=== PATIENT | female | born 1945 | race Caucasian/White ===

== ENCOUNTER 2016-12-10 22:58 | Inpatient (IN) | payer MEDICARE, OTHER ==
[~2016-12-10] VITALS: Ht 162.6 cm; Wt 79.0 kg
[~2016-12-10 22:58] MED LIST: ASPI-973 PO; CALC-682 PO; CHOL500011 PO; DIPH1TAB PO; GABA800T2 PO; LEVO75TA4 PO; METH750T3 PO; METH850P PO; MULT-1065 PO; NITR0.4T SL; OMEP20CA11 PO; OXYC10TA8 PO; PROM25SU46 RC; SOLI10TA PO
[2016-12-10 23:12] VITALS: BP 167/71; PULSE 75; RESP 18; O2SAT 98
--- NOTE | 2016-12-10 23:15 | ED.REPORT ---
HPI-General Illness Date of Service Dec 10, 2016 ED Provider: Sidney Swift DO This patient is a demented 71 year old female with a history of hypertension, alleged coronary artery disease, hypothyroidism, and short gut syndrome who is brought to the ED by EMS from [facility] with flu-like symptoms that started 2 days ago. Ashley Griffith is currently in the midst of an influenza outbreak and she states that she made the mistake of interacting with other people at the facility several days ago. She admits to vomiting, nausea, cough, and fever. She denies chest pain or shortness of breath. Had flu shot this year. Nursing Notes Stated Complaint: FLU SYMPTOMS Chief Complaint: General Complaint Nursing Notes Reviewed: Yes Allergies: Coded Allergies: baclofen (Verified Adverse Reaction, Severe, confusion, altered LOC, ) NSAIDS (Non-Steroidal Anti-Inflamma (Unverified Adverse Reaction, Intermediate, ulcers, 01/23/16) chlorpromazine HCl (Verified Adverse Reaction, Intermediate, itchy nose, anxiety, rls, 01/23/16) metoclopramide HCl (Verified Adverse Reaction, Intermediate, Agitation, 01/23/16) midazolam (Unverified Adverse Reaction, Intermediate, 01/23/16) Extended memory loss morphine (Verified Adverse Reaction, Intermediate, RLS, 01/23/16) prochlorperazine maleate (Verified Adverse Reaction, Intermediate, Anxiety , 01/23/16) Iodinated Contrast Media - Oral and (Verified Adverse Reaction, Mild, ) PT. states she had a rxn to iodine contrast at 17 years of age. Has not reacted to contrast CT in recent years. No rxn to topical iodine codeine (Verified Adverse Reaction, Mild, "doesn't work", 01/23/16) fentanyl (Verified Adverse Reaction, Mild, "I don't like how it makes me feel", 01/23/16) meperidine (Verified Adverse Reaction, Mild, RLS, 01/23/16) Scheduled Aspirin (Aspirin) 81 Mg Tablet 81 MG PO DAILY Calcium Crb&Cit/D3/Min34/Yaya (Citracal + Bone Density Tablet) 1 Each Tablet 1 TAB PO BID Cholecalciferol (Vitamin D3) (Vitamin D3) 5,000 Unit Tablet 5,000 UNIT PO DAILY Diphenoxylate/Atropine 2.5-0.025 mg (Lomotil 2.5-0.025 mg) 1 Each Tablet 8 TAB PO QAM Gabapentin (Gabapentin) 800 Mg Tablet 800 MG PO TID Levothyroxine (Levothyroxine) 75 Mcg Tablet 75 MCG PO DAILY Methocarbamol (Methocarbamol) 750 Mg Tablet 750 MG PO TID Methylcellulose (with Sugar) (Citrucel Powder) 850 Gm Powder 850 GM PO DIRECTED Multivits-Min/Iron/FA/Lutein (Centrum Silver Women Tablet) 8 Mg Iron-400 Mcg- 300 Mcg Tablet 1 TAB PO DAILY Omeprazole (Omeprazole) 20 Mg Capsule.dr 20 MG PO DAILY Solifenacin Succinate (Vesicare) 10 Mg Tablet 10 MG PO BID Scheduled PRN Nitroglycerin SL (Nitrostat) 0.4 Mg Tab.subl 0.4 MG SL Q5MIN PRN PRN For Chest Pain Promethazine HCl (Phenergan) 25 Mg Supp.rect 25 MG RC TID PRN PRN For Nausea/ Vomiting oxyCODONE (oxyCODONE) 10 Mg Tablet 10 MG PO Q6H PRN PRN For Pain General Time Seen by MD: 23:15 Chief Complaint Flu-like illness Hx Obtained From: Patient, EMS Arrived By: Ambulance Sudden in Onset?: No Onset Occurred: More than a week ago... (2 weeks) Symptom Duration: Since onset Severity: Current: No pain currently Severity: Maximum: No pain Recent Healthcare: No recent doctor visit, No recent hospitalization Similar Sx Previous: Yes Past Medical History Past Medical History 1. Hypothyroidism 2. Hypertension 3. Restless leg syndrome 4. Esophageal spasms 5. Chronic pain with opiate habituation 6. Osteoporosis with L4 compression fracture 7. Osteoarthritis(sees Dr. Hart) 8. Alleged CAD (no interventions, no hospitalization- per patient's report) 9. Alleged CVA ( found on MRI after she presented with symptoms of "acting goofy" when she was in her mid 50s)- no residual symptoms 10. Overactive bladder 11. Vitamin B12 deficiency 12. History of ischemic colitis resulting in subcolectomy of her sigmoid colon in her mid 40s 13. Chronic diarrhea due to colectomy 14. Hospitalized for small bowel obstruction in 2011 and March 2013 Bifurcate uterus Congential colon problems Congenital three kidneys Short gun syndrome Dementia SVT paroxsymal Reports: Hypertension, Mental illness Reports: Depression Past Surgical History Vagotomy and pyloroplasty for peptic ulcer disease in the very distant past. Subtotal colectomy. Hysterectomy.bilateral salpingo-oophorectomy. Appendectomy. Laparotomy with enterolysis on several occasions. 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 Physical Exam Vital Signs Vital Signs Date Time Temp Pulse Resp B/P Pulse Ox O2 Delivery O2 Flow Rate FiO2 12/11/16 02:52 36.9 73 18 156/69 97 Room Air 12/11/16 02:00 39 75 28 157/88 94 Room Air 12/11/16 00:00 75 26 147/73 95 Room Air 12/10/16 23:12 36.9 75 18 167/71 98 Room Air Initial VS: Reviewed Head / Eyes: Atraumatic, Normocephalic, PERRL ENT: Mucous membranes moist, Conjunctiva normal, No scleral icterus Neck: Supple, Non-tender, Full range of motion Cardiovascular: Regular rate & rhythm, Heart sounds normal, Intact distal pulses Abdomen / GI: Soft, Non-tender, No guarding, No rebound, No distention Extremities: Vascular intact, Neuro intact, No swelling, No tenderness Skin: Warm, Dry, No cyanosis Neurologic: Alert, Oriented, Nonfocal Psychiatric: Mood/affect normal, Behavior normal, Normal thought content General/Constitutional: Awake, Alert, No acute distress Respiratory / Chest: No respiratory distress, No rales, No rhonchi, No wheezing Occasional cough, otherwise normal Interpretation & Diagnostics Interpretation & Diagnostics: POSITIVE FOR FLU A NEGATIVE FOR FLU B Lab Results Interpretation Result Diagram: 12/10/16 2342 12/10/16 2342 Test 12/10/16 00:40 12/10/16 23:42 12/11/16 03:41 Urine Color Straw (YELLOW) Urine Appearance Clear (CLEAR,HAZY) Urine pH 6.0 (5.0-8.0) Urine Specific [place] 1.010 (1.003-1.035) Urine Protein Negativemg/dL (NEG,TRACE) Urine Glucose (UA) Negativemg/dL (NEGATIVE) Urine Ketones Negativemg/dL (NEGATIVE) Urine Occult Blood Negative (NEGATIVE) Urine Nitrite Negative (NEGATIVE) Urine Bilirubin Negative (NEGATIVE) Urine Urobilinogen Normalmg/dL (NORMAL) Urine Leukocyte Esterase Negative (NEGATIVE) Urine RBC 0-2/hpf (0-2) Urine WBC 0-5/hpf (0-5) Urine Epithelial Cells Few/hpf (NONE-MOD) Urine Crystals None seen (NONE SEEN) Urine Bacteria None/hpf (NONE-FEW) Urine Hyaline Casts None/lpf (NONE) Urine Granular Casts None seen (NONE SEEN) Urine Waxy Casts None seen (NONE SEEN) Urine Red Blood Cell Casts None seen (NONE SEEN) Urine White Blood Cell Casts None seen (NONE SEEN) Urine Mucus None seen (None Seen) Urine Trichomonas None seen (NONE SEEN) Urine Yeast None (NONE SEEN) Urine Culture Reflexed Not indicated White Blood Count 7.0th/mm3 (3.8-10.1) Red Blood Count 4.62mil/mm3 (3.90-5.20) Hemoglobin 12.9g/dL (12.0-15.6) Hematocrit 39.3% (35.0-46.0) Mean Corpuscular Volume 85.1fL (81-100) Mean Corpuscular Hemoglobin 27.9pg (27.0-35.0) Mean Corpuscular Hemoglobin Concent 32.8% (32.0-37.0) Red Cell Distribution Width 13.4% (12.3-15.4) Platelet Count 218bil/L (150-400) Neutrophils (%) (Auto) 82.0% (40-74) Lymphocytes (%) (Auto) 4.6% (14-46) Monocytes (%) (Auto) 11.8% (4-12) Eosinophils (%) (Auto) 1.0% (0-5) Basophils (%) (Auto) 0.3% (0-3) Prothrombin Time 10.7sec (8.1-12.5) Prothromb Time International Ratio 1.00ratio Sodium Level 137mEq/L (134-144) Potassium Level 4.3mEq/L (3.5-5.2) Chloride Level 98mEq/L (97-108) Carbon Dioxide Level 26mmol/L (18-29) Blood Urea Nitrogen 7mg/dL (8-27) Creatinine 0.98mg/dL (0.57-1.00) Estimat Glomerular Filtration Rate 80mL/min (>59) Glucose Level 132mg/dL (60-99) Lactic Acid Level 1.8mmol/L (0.4-2.0) Calcium Level 9.3mg/dL (8.5-10.1) Magnesium Level 1.8mg/dL (1.6-2.6) Total Bilirubin 0.2mg/dL (0.0-1.2) Aspartate Amino Transf (AST/SGOT) 19U/L (0-50) Alanine Aminotransferase (ALT/SGPT) 13U/L (0-32) Alkaline Phosphatase 111U/L (25-165) Total Protein 7.7g/dL (6.4-8.4) Albumin 4.1g/dL (3.4-5.0) Lipase 23U/L (13-60) Troponin T 0.315ug/L (0.0-0.011) ECG Interpretation ECG Interpretation: SR with rate of 75 Time: 12:07 Interpreted by: ED physician X-Ray Chest Interpretation Chest Xray Interpretation: Elevated right hemidiaphragm, otherwise normal No signs of pneumonia Interpretation / Wet Read by: Wet read ED physician Re-Eval/Medical Decision Med Decision/Clinical Course 71-year-old female presents with fever chills nausea and vomiting. She is found to have influenza a period I was concerned enough for possible anginal equivalent causing her nausea that serial troponins were drawn. Repeat troponin came back elevated. Serial EKGs do not show any signs of myocardial ischemia. Perhaps she is having a troponin spillage related to the stress of the influenza. Either way she is now pain-free. Her EKG does not show dynamic changes. She will be treated with aspirin. Care was endorsed to Dr. Tyler. He will consult with cardiology and the hospitalist make final disposition. Source of Hx: Old records, EMS Time of Eval: 01:46 Re-Evaluation/Progress Note: Pt. rechecked. Told her she's positive for influenza A. All questions have been addressed at this time. Time of Eval: 03:16 Re-Evaluation/Progress Note: Rechecked the patient. She now requests to go home and states that she is feeling better. Patient will have a repeat Troponin prior to discharge. Time of Eval: 05:08 Re-Evaluation/Progress Note: Rechecked the patient. Informed her of the finding of elevated repeat Troponin. The patient continues not to have chest pain. She will be transferred over to Dr. Tyler. Counseled Regarding: Diagnosis, Lab results, Need for follow-up, When/why to return to ED Discharge & Departure Shift Change Sign-Out Patient Care Transferred: Yes Discussed Complaint(s): Yes Laboratory Evaluation: Lab evaluation discussed Imaging Studies: Imaging discussed Response to Therapy: Improved Primary Impression: Influenza Additional Impressions: Nausea and vomiting Vomiting type: unspecified Vomiting Intractability: non-intractable Qualified Code: R11.2 - Nausea with vomiting, unspecified Elevated troponin Referrals: [facility] (PCP) Care Transferred to: Dr. Tyler Care Transferred at: 05:00 Saumya Attestation Portions of this note were transcribed by Radha Diaz I, Dr. Swift personally performed the history, physical exam and medical decision-making ; I reviewed and confirmed the accuracy of the information in the transcribed note. Signed by: Saumya Donohue, 12/11/2016 and 0510 copies to: [facility] Sidney Swift DO Dec 10, 2016 23:15 Allyssa Sullivan [Radha] Dec 10, 2016 23:17 Neisha Diaz Dec 11, 2016 04:43
[2016-12-10] MEDS ORDERED: 0.9% Sodium Chloride 1,000 ML IV ONE (23:18)
[2016-12-11] VITALS (9 sets, daily range): BP systolic 125–169; BP diastolic 54–88; PULSE 62–87; RESP 14–28; O2SAT 93–100
[2016-12-11 00:02] LABS: BASOPHILS % (AUTO) 0.3 % (0-3); MONOCYTES % (AUTO) 11.8 % (4-12); Mean Corpuscular Hemoglobin 27.9 pg (27.0-35.0); Mean Corpuscular Volume 85.1 fL (81-100); Platelet Count 218 bil/L (150-400)
[2016-12-11] MEDS: HYDROmorphone 0.5 mg/0.5 mL iSecure Syringe IVPUSH PRN ×7 (00:04→18:03)
[2016-12-11] MEDS: Ondansetron 2 mg/mL 2 mL Inj IVPUSH PRN ×8 (00:04→22:05)
[2016-12-11 01:01] LABS: Magnesium 1.8 mg/dL (1.6-2.6); TROPONIN T 0.01 ug/L (0.0-0.011)
[2016-12-11 01:18] LABS: APPEARANCE,URINE CLEAR (CLEAR,HAZY); COLOR,URINE STRAW (YELLOW); OCCULT BLOOD,URINE NEGATIVE (NEGATIVE); UROBILINOGEN,URINE NORMAL (NORMAL)
[2016-12-11] MEDS ORDERED: HYDROmorphone 0.5 mg/0.5 mL iSecure Syringe IVPUSH ONE (03:30)
[2016-12-11] MEDS ORDERED: Ondansetron 2 mg/mL 2 mL Inj IVPUSH ONE (03:30)
[2016-12-11] MEDS ORDERED: HYDROmorphone 0.5 mg/0.5 mL iSecure Syringe IVPUSH PRN (05:55)
[2016-12-11] MEDS ORDERED: Heparin 25K Unit/500mL 0.45 NS 25,000 UNIT in IV Premix 1 EACH IV ONE (06:15)
[2016-12-11] MEDS ORDERED: Heparin 5,000 Unit/mL Inj IVPUSH ONE (06:15)
[2016-12-11] MEDS ORDERED: Nitroglycerin 2% 1 Gm Ointment TOPICAL ONE (06:15)
[2016-12-11] MEDS: MeTOProlol 1 mg/mL 5 mL Inj IVPUSH PRN ×3 (06:37→06:44)
--- NOTE | 2016-12-11 08:44 | DRSVH ---
PROCEDURE: X-RAY CHEST ONE VIEW, PORTABLE ([id number]) INDICATIONS: cough TECHNIQUE: One view of the chest was acquired. COMPARISON: [facility], CR, CHEST 2VW, 11/19/2014, 14:36. [facility], CR, XR CHEST 2VW, 11/21/2015, 12:57. FINDINGS: Surgical changes and devices: None. Lungs and pleura: Mild, patchy airspace opacities are present within the right midlung. These were li costa present on the study dated 11/21/15, but are more conspicuous on the current study. No other air space opacities. No pleural effusion or pneumothorax. Mediastinum: Mediastinal contours appear normal. Heart size is enlarged. Bones and chest wall: No suspicious bony lesions. Overlying soft tissues appear unremarkable. IMPRESSION: 1. Right midlung airspace opacities which likely represent scar, although superimposed infection emile ot be excluded. Short interval followup is recommended with resolution of the patient's symptoms to e nsure there is no underlying pulmonary pathology. 2. Mild cardiomegaly. Dictated by: Caity Bowling M.D. on 12/11/2016 at 8:43 Approved by: Caity Bowling M.D. on 12/11/2016 at 8:43
--- NOTE | 2016-12-11 12:22 | NUR ---
Social Work Note - Initial Assessment Catia Naidu is a 71 yr old who was admitted for N Stemi and influenza. EMR reviewed: Pt has Medicare and for life. Her PCP is [facility]. Readmit score not available. See attached CM initial assessment. COMMISSIONS MANAGER met with pt - introduced D/C planning and explained SW role. Pt lives in [facility] apartment - is Wheelchair bound at baseline. She has an electric wheelchair and is able to transfer. She prides herself in her independence. She does not drive, uses facilities transport. Pt's daughter is her DPOA. She has family in the area. Has had Home health in the past - not interested at this time. No other needs identified. COMMISSIONS MANAGER discussed with Lexy Booker RN at [facility] [phone] who agrees that Pt likely can return with no anticipated needs. Plan: Return to [facility] [place] - Transportation may be available through [facility] at d/c. EFRA Rodriguez Addendum: 12/11/16 at 1229 by DAYO FRANCISCO SS Amended: Links added.
[2016-12-11] MEDS ORDERED: OXYC-474 PO (12:24)
[2016-12-11] MEDS ORDERED: SOLI5TAB2 PO (12:26)
[2016-12-11] MEDS ORDERED: HYDR12.55 (12:30)
[2016-12-11] MEDS ORDERED: PROZ20 ORAL (12:30)
--- NOTE | 2016-12-11 12:45 | NUR ---
Transfer Pt is being transferred to [facility], report given to OLIVERIO Jacome, Pt was placed on Heparin gtt, INR was drawn prior to her going to the floor. IVT changed her IV to her right arm and we left the left ankle IV in for backup.
--- NOTE | 2016-12-11 13:02 | NUR ---
Admission Pt arrived on [facility] to room 3025. Heparin gtt infusing at 1000 units per hour. VSS, pt reports pain in back/head "generally feels miserable". pt complains of extreme nausea. Requesting clear soda to sip. Oriented to call light. Frequent rounding in place, will continue to monitor.
--- NOTE | 2016-12-11 13:55 | NUR ---
PTT Call from lab, PTT of 27. 5000 unit bolus needed, heparin gtt order has been D/Elizabeth. Awaiting call back from . Addendum: 12/11/16 at 1914 by YUMI CURTIS RN call back, new orders generated
[2016-12-11] MEDS ORDERED: Polyethylene Glycol (PEG) 17 Gm Powder PO PRN (14:35)
[2016-12-11] MEDS ORDERED: Heparin 5,000 Unit/mL Inj IVPUSH PRN (14:35)
[2016-12-11] MEDS ORDERED: Alum-Mag Hydrox-Simeth 30 mL Suspension PO PRN (14:35)
[2016-12-11] MEDS ORDERED: Heparin 25K Unit/500mL 0.45 NS 25,000 UNIT in IV Premix 1 EACH IV SCH (14:35)
[2016-12-11] MEDS ORDERED: Ondansetron 2 mg/mL 2 mL Inj IVPUSH PRN (14:45)
--- NOTE | 2016-12-11 15:48 | PCM.HPMED ---
Subjective Date of Service Dec 11, 2016 Primary Provider: Admitting Physician: Jasbir Loco MD Primary Care Physician: Fredy,[facility] Residency Attending Physician: Jasbir Loco MD Admit Status: From the Emergency Department, Full Admit, Admit to [facility], [facility] Telemetry Chief Complaint: Influenza A, elevated troponin History of Present Illness: This is a 71-year-old resident of [facility]. She presents with 2 days history of viral symptoms and a confirmed flu a PCR. She has had rhinorrhea and a cough as well as nausea and repeated emesis for about a day. No fevers or chills. No overt dyspnea. No chest pain or palpitations. She also denies diarrhea. There is a flu outbreak at her assisted living facility. In the ED she did have Formation of flu a and an elevated troponin with normal appearing electrocardiogram. She notes a possible history of a silent heart attack in the past but no recent cardiac testing. Again she denies any chest pain at rest or with exertion. Also denies leg edema, orthopnea or overt shortness of breath either at rest or with exertion. Review of Systems: No headache or visual changes. No hearing loss. No skin rash. She does feel weak, dehydrated and very thirsty. Her urination is fairly normal no dysuria or hematuria. She denies any skin rash or lesions but does feel somewhat dizzy when sitting up. Also reviewed and otherwise negative except as noted in history of present illness. Allergies Coded Allergies: baclofen (Verified Adverse Reaction, Severe, confusion, altered LOC, ) NSAIDS (Non-Steroidal Anti-Inflamma (Unverified Adverse Reaction, Intermediate, ulcers, 01/23/16) chlorpromazine HCl (Verified Adverse Reaction, Intermediate, itchy nose, anxiety, rls, 01/23/16) metoclopramide HCl (Verified Adverse Reaction, Intermediate, Agitation, 01/23/16) midazolam (Unverified Adverse Reaction, Intermediate, 01/23/16) Extended memory loss morphine (Verified Adverse Reaction, Intermediate, RLS, 01/23/16) prochlorperazine maleate (Verified Adverse Reaction, Intermediate, Anxiety , 01/23/16) Iodinated Contrast Media - Oral and (Verified Adverse Reaction, Mild, ) PT. states she had a rxn to iodine contrast at 17 years of age. Has not reacted to contrast CT in recent years. No rxn to topical iodine codeine (Verified Adverse Reaction, Mild, "doesn't work", 01/23/16) fentanyl (Verified Adverse Reaction, Mild, "I don't like how it makes me feel", 01/23/16) meperidine (Verified Adverse Reaction, Mild, RLS, 01/23/16) Home Medications Aspirin (Aspirin) 81 Mg Tablet 81 MG PO DAILY Calcium Crb&Cit/D3/Min34/Yaya (Citracal + Bone Density Tablet) 1 Each Tablet 1 TAB PO BID Cholecalciferol (Vitamin D3) (Vitamin D3) 5,000 Unit Tablet 5,000 UNIT PO DAILY Diphenoxylate/Atropine 2.5-0.025 mg (Lomotil 2.5-0.025 mg) 1 Each Tablet 8 TAB PO QAM Gabapentin (Gabapentin) 800 Mg Tablet 800 MG PO TID Levothyroxine (Levothyroxine) 75 Mcg Tablet 75 MCG PO DAILY Methocarbamol (Methocarbamol) 750 Mg Tablet 750 MG PO TID Methylcellulose (with Sugar) (Citrucel Powder) 850 Gm Powder 850 GM PO DIRECTED Multivits-Min/Iron/FA/Lutein (Centrum Silver Women Tablet) 8 Mg Iron-400 Mcg- 300 Mcg Tablet 1 TAB PO DAILY Omeprazole (Omeprazole) 20 Mg Capsule.dr 20 MG PO DAILY Solifenacin Succinate (Vesicare) 10 Mg Tablet 10 MG PO BID Scheduled PRN Nitroglycerin SL (Nitrostat) 0.4 Mg Tab.subl 0.4 MG SL Q5MIN PRN PRN For Chest Pain Promethazine HCl (Phenergan) 25 Mg Supp.rect 25 MG RC TID PRN PRN For Nausea/ Vomiting oxyCODONE (oxyCODONE) 10 Mg Tablet 10 MG PO Q6H PRN PRN For Pain PMH 1. Hypothyroidism 2. Hypertension 3. Restless leg syndrome 4. Esophageal spasms 5. Chronic pain with opiate habituation 6. Osteoporosis with L4 compression fracture 7. Osteoarthritis(sees Dr. Hart) 8. Alleged CAD (no interventions, no hospitalization- per patient's report) 9. Alleged CVA ( found on MRI after she presented with symptoms of "acting goofy" when she was in her mid 50s)- no residual symptoms 10. Overactive bladder 11. Vitamin B12 deficiency 12. History of ischemic colitis resulting in subcolectomy of her sigmoid colon in her mid 40s 13. Chronic diarrhea due to colectomy 14. Hospitalized for small bowel obstruction in 2011 and March 2013 Bifurcate uterus Congential colon problems Congenital three kidneys Short gun syndrome Dementia SVT paroxsymal Reports: Hypertension, Mental illness Reports: Depression Surgical History Vagotomy and pyloroplasty for peptic ulcer disease in the very distant past. Subtotal colectomy. Hysterectomy.bilateral salpingo-oophorectomy. Appendectomy. Laparotomy with enterolysis on several occasions. Tonsillectomy Family History Positive family history for coronary artery disease Social History Hx Alcohol Use: Yes Alcoholic Drinks Per Day: 1 per week Hx Substance Use: No Hx Tobacco Use: No Smoking Status: Never Smoker Living Arrangement: Assisted Living Exam Vital Signs Vital Sign - Last Date Time Temp Pulse Resp B/P Pulse Ox O2 Delivery O2 Flow Rate FiO2 12/11/16 13:20 68 12/11/16 12:00 37.6 17 125/54 96 Nasal Cannula 2.00 Intake and Output 12/10/16 12/10/16 12/11/16 Cumulative From/Thru 15:00 23:00 07:00 12/10/16 23:12 - 12/11/16 00:43 Intake Total 1000 ml 1000 ml Balance 1000 ml 1000 ml IV Total 1000 ml 1000 ml Exam Alert oriented 3, lethargic. No distress. Fluent speech. Normal skull Anicteric sclerae, symmetric pupils. Normal nose and ears. Oropharynx dry mucosa and no facial droop. Upper, normal thyroid, no adenopathy. Lungs are clear with no expiratory wheezing or rhonchi Heart is regular without murmur gallop or rub Abdomen soft nondistended. Extremities are free of edema. Good pedal and radial pulses. Skin is free of rash or lesions or ecchymosis. Joints are not swollen or deformed. Motor strength 5 out of 5 Cranial nerves are intact. Affect is flat. Lab and Diagnostics Result Diagram: 12/10/16234112/10/162341 Microbiology Nasal flu PCR positive for flu a X-Rays, CTs and MRIs Chest x-ray is unremarkable 12-lead ECG ECG sinus rhythm with no acute ST segment changes Assessment & Plan 1. Influenza A. POA. Tamiflu twice a day for a total course of 5 days. 2. Volume depletion. POA. Fluid resuscitation with normal saline. 3. Possible end STEMI, POA. Plan his beta blockade, aspirin, heparin drip and serial troponins. We will decide on further risk stratification pending her clinical course. 4. Chronic pain syndrome, continues opiate dependency. POA. Resume usual medications. 5. Hypertension, essential. POA. Resume his usual medications after fluid resuscitation. Patient is full resuscitation, confirmed today. Admitted inpatient status with anticipated length of stay of over 2 nights. Pain Evaluation: Adequate Pain Control Resuscitation Status: CPR: Attempt Resuscitation Time spent 40 minutes Jasbir Loco MD Dec 11, 2016 15:48
--- NOTE | 2016-12-11 17:45 | NUR ---
Pain/nausea Pt reports generalized all over pain, 10/10 on pain scale as well as nausea. IV Dilaudid and Zofran given as ordered. Pt declined offer of clear liquids, ice, heat or any additional interventions. Call light with in reach will continue to monitor.
[2016-12-11] MEDS ORDERED: 0.9% Sodium Chloride 1,000 ML ONE (20:56)
[2016-12-11] MEDS: 0.9% Sodium Chloride 1,000 ML IV SCH (21:30)
--- NOTE | 2016-12-11 21:31 | NUR ---
PTT PTT draw from 1929 was 239. Heparin infusion stopped, stat PTT ordered. paged with update. Will follow heparin protocol when lab result is ready. Patient updated on lab result and intervention. Addendum: 12/11/16 at 2229 by RODRIGUEZ POWELL RN Redraw lab result was 237.6. Heparin drip remains disconnected at this time from previous high result. Stat PTT ordered again. Addendum: 12/12/16 at 0003 by RODRIGUEZ POWELL RN PTT result at 2345 was 117.1. Per protocol, Heparin infusion had been stopped for longer than 30 minutes because of previous results. Decreased rate from 1200 units/hr to 1100 units/hr and next PTT draw to be at 0630. Patient updated and lab updated on new schedule.
--- NOTE | 2016-12-11 21:33 | NUR ---
Pain/Nausea/IV fluids Patient reported that Zofran was ineffective, Dilaudid ineffective. Patient is actively throwing up small amounts of clear, frothy liquid. Patient requested Compazine suppository for nausea and PO Vistaril for pain. MD paged with patient's request- new order for OT UT Compazine. Administered to patient. No order to change pain medication. Night MD also made aware that home medications have not been reordered. Admitting MD note states to rehydrate with NS, not ordered. MD ordered NS at 50ml/hr. Administered and updated patient.
[2016-12-12] VITALS (11 sets, daily range): BP systolic 150–192; BP diastolic 76–99; PULSE 40–68; RESP 18–20; O2SAT 92–97
[2016-12-12] MEDS: Ondansetron 2 mg/mL 2 mL Inj IVPUSH PRN ×3 (02:45→14:14)
--- NOTE | 2016-12-12 03:58 | NUR ---
Chest Pain Patient reported waking up at about 0215 and having sharp substernal chest pain with deep breaths. Patient rated pain at 6/10 and said "I know it's my heart." paged- new order for EKG and PRN nitro tabs. Vital signs stable, slightly elevated BP (patient refused HS Metoprolol). Telemetry called and reported no changes in the SR, 60-70's. EKG done, SR. Nitro tab administered, patient reported relief and declined second tab. Patient then said she just wants to rest. Alert and oriented, using call light appropriately. Heparin infusion continues, and four troponins have been drawn- one at 0.315, otherwise negative.
[2016-12-12] MEDS: HYDROmorphone 0.5 mg/0.5 mL iSecure Syringe IVPUSH PRN ×2 (06:06→15:46)
[2016-12-12 09:22] LABS: BASOPHILS % (AUTO) 0.4 % (0-3); EOSINOPHILS % (AUTO) 0 % (0-5); MONOCYTES % (AUTO) 21.4 % (4-12); Mean Corpuscular Hemoglobin 28.6 pg (27.0-35.0); Mean Corpuscular Volume 83.7 fL (81-100); NEUTROPHILS % (AUTO) 57.8 % (40-74); Platelet Count 194 bil/L (150-400)
[2016-12-12 09:43] LABS: Magnesium 1.8 mg/dL (1.6-2.6); Phosphorus 3.8 mg/dL (2.5-4.9)
--- NOTE | 2016-12-12 13:20 | NUR ---
Stop heparin Patient had Heparin drip running at 1100 units/hour. Patient had PTT drawn with critical results of 187.2. Heparin was stopped and notified. Lab came to drawn PTT, but had difficulty. Another molder labels is in room attempting to draw PTT.
--- NOTE | 2016-12-12 13:53 | DRSVH ---
[facility] [address] [place] [address] Echocardiogram Report Name: MARK LOPEZ LStudy Date: 12/12/2016 Height: 64 in Hospital Exam Location: [facility] Weight: 180 lb Gender: Female BSA: 1.9 m2 : 1945 Age: 71 yrs BP: 160/76 mmHg Reason For Study: ACS Ordering Physician: Performed By: Juan Ying Interpretation Summary The patient was bradycardic with a heart rate of 43-56 beats per minute. The left ventricle is normal in size. There is normal left ventricular wall thickness. The ejection fraction is estimated to be 60-65%. There are no focal wall motion abnormalities. There is mild to moderate aortic stenosis. The peak aortic velocity is 2.7 m/sec. The calculated aortic valve area is 1.5 cm2. The right ventricular systolic pressure is estimated at 30 mmHg assuming a right atrial pressure of 3 mm Hg. No other echocardiographic abnormalities seen. Compared to the prior echo report on 09/11/2015, there is no significant change. Procedure: A two-dimensional transthoracic echocardiogram with color flow and Doppler was performed. The study quality was technically adequate. Comparison is made with the echocardiogram of 09/11/15. The patient was in normal sinus rhythm during the exam. The patient was bradycardic with a heart rate of 43-56 beats per minute. Left Ventricle: The left ventricle is normal in size. There is normal left ventricular wall thickness. The ejection fraction is estimated to be 60-65%. There are no focal wall motion abnormalities. Assessment of diastolic parameters indicates normal left ventricular diastolic function and normal filling pressures. Right Ventricle: The right ventricle is normal in size and function. Atria: Both atria are normal in size. The interatrial septum is intact with no evidence for an atrial septal defect. The thickening of interatrial septum suggests lipomatous hypertrophy. Mitral Valve: There is mild mitral annular calcification. There is mild mitral regurgitation. Aortic Valve: The aortic valve is trileaflet. The aortic valve is mildly calcified. Leaflet mobility is mild to moderately reduced. The peak aortic velocity is 2.7 m/sec. The aortic valve mean gradient is 16.7 mmHg. The calculated aortic valve area is 1.5 cm2. The aortic valve area is 1.3 centimeters squared by planimetry. There is mild to moderate aortic stenosis. There has been no significant change since the previous study. There is trace aortic regurgitation. Tricuspid Valve: The tricuspid valve is normal in structure and function. There is trace tricuspid regurgitation. The right ventricular systolic pressure is estimated at 30 mmHg assuming a right atrial pressure of 3 mm Hg. Pulmonic Valve: The pulmonic valve is normal in structure and function. There is trace pulmonic regurgitation. Great Vessels: The aortic root is normal size. The dimensions of the ascending aorta are normal. The pulmonary artery is normal size. The IVC is of normal diameter and collapses greater than 50% with a sniff. This suggests a low right atrial pressure of 3 mm Hg. Pericardium/ Pleura There is no pericardial effusion. There is no pleural effusion. MMode/2D Measurements & Calculations LVIDd LA dimension: 3.6 cm RA long axis: 4.2 cm LVOT diam: 2.1 cm : 4.4 cm AoV Opening LVIDs LA A2 area: 20.0 cm RA area: 15.1 cm : 2.9 cm LA A4 area: 17.1 cm RA vol: 46.5 ml Ao root diam FS: 33.7 % LA length (vol) RA : 24.8 ml/m2 EPSS Aortic Jxn: 2.7 cm : 0.6cm LA vol: 56.8 ml asc Aorta Diam IVSd LA vol index : 0.7cm Ao Arch Diam (Prox LVPWd Trans): 2.9 cm : 0.9cm IVC diam: 2.0 cm GALLO (plan) LV angulo. diameter/BSA LV sys. diameter/BSA (cm/m^2): 2.3 (cm/m^2): 1.6 : 1.3 cm2 Doppler Measurements & Calculations Ao V2 max MV E max deep MV E/A: 0.90 TR max deep : 272.6 cm/sec : 87.7 cm/sec Med Peak E' Deep : 258.9 cm/sec Ao max P.7 mmHg MV A max deep TR max PG Ao mean P.7 mmH.5 cm/sec E/E' med: 13.7 : 26.8 mmHg LVOT Max Deep Pulm A Revs Dur PA V2 max : 108.1 cm/sec : 57.6 cm/sec GALLO(I,D): 1.5 cm MV A dur PA mean PG sev ratio: 0.42 : 0.13 sec : 0.79 mmHg PA Accel Time : 0.12 sec MV dec time: 0.17 secAo V2 mean LV V1 max PG PA V2 mean : 195.1 cm/sec : 42.6 cm/sec Ao V2 VTI: 70.7 cm LV V1 VTI PA pr(Accel) GALLO(V,D): 1.4 cm2 : 29.4 cm : 24.1 mmHg GALLO indexed to BSA Pulm A Revs Dur - MV A (cm^2/m^2): 0.79 Dur: -0.03 msec Reading Physician:01:53 PM
--- NOTE | 2016-12-12 16:57 | PCM.PNMED ---
Subjective Date of Service Dec 12, 2016 Subjective Patient had persistent nausea, vomiting until this morning, resolved with antiemetics Was able to tolerate diet this morning Denied abdominal pain PTT was in the supratherapeutic range, therefore he was stopped Patient denied chest pain throughout the course Exam Vital Signs Vital Sign - Last Date Time Temp Pulse Resp B/P Pulse Ox O2 Delivery O2 Flow Rate FiO2 12/12/16 14:52 36.8 53 18 160/79 97 Room Air 12/12/16 02:31 2.00 Intake and Output 12/11/16 12/11/16 12/12/16 Cumulative From/Thru 15:00 23:00 07:00 12/10/16 23:12 - 12/12/16 05:09 Intake Total 480 ml 237 ml 803 ml 2520 ml Output Total 1200 ml 340 ml 1540 ml Balance -720 ml -103 ml 803 ml 980 ml Intake Oral 480 ml 237 ml 717 ml IV Total 803 ml 1803 ml Output Urine Total 1200 ml 340 ml 1540 ml # Bowel Movements 0 0 Exam NAD, comfortably laying down on the bed no JVD, MMM, no LAD RRR, nl s1, s2 and gr3 roy systolic murmur at the right upper sternal border CTAB, no w,c S,ND,NT,normoactive BS+ warm, no edema, pulses 2/2 IVs and Medications Medications Reviewed: Medications were reviewed in detail Lab and Diagnostics Result Diagram: 12/12/16 1041 12/12/16 0900 Microbiology Nasal flu PCR positive for flu a X-Rays, CTs and MRIs Chest x-ray is unremarkable 12-lead ECG ECG sinus rhythm with no acute ST segment changes Assessment & Plan Acute, active #Influenza A. POA. Patient's respiratory function remained stable, afebrile since 12/11 -Continue Tamiflu twice a day for a total course of 5 days. -O2 supplement, target>95% -stopped IVF as patient appeared euvolemic #Hypertension, essential. POA. uncontrolled 160-170s off on home meds, resume HCTZ12.5mg today Chronic, stable #Questionable ACS, POA, patient was started on BB, aspirin and heparin given acutely elevated troponin, however, serial troponins remained normal, EKGs and echocardiogram did not suggest ischemic disease. Therefore, aspirin/BB/heparin stopped. # Chronic pain syndrome, continues opiate dependency. POA. Resume usual medications. dispo:Patient will be admitted with inpatient status with expectation of inpatient therapy for more than 2 midnights diet: Regular diet dvt ppx:SCD Full code Resuscitation Status: CPR: Attempt Resuscitation Time spent 35 minutes Brock Bunch MD Dec 12, 2016 16:57
[2016-12-12] MEDS: 0.9% Sodium Chloride 1,000 ML IV SCH (17:22)
[2016-12-12] MEDS ORDERED: LISI-571 PO (20:31)
[2016-12-13] VITALS (11 sets, daily range): BP systolic 124–192; BP diastolic 75–87; PULSE 42–60; RESP 16–18; O2SAT 93–97
[2016-12-13] MEDS: HYDROmorphone 0.5 mg/0.5 mL iSecure Syringe IVPUSH PRN ×6 (00:01→23:24)
[2016-12-13] MEDS: Ondansetron 2 mg/mL 2 mL Inj IVPUSH PRN ×4 (00:01→15:01)
--- NOTE | 2016-12-13 05:31 | NUR ---
Nausea/Pain Patient reported nausea intermittently through the night. No emesis. Zofran given twice, effective. Patient tolerating small sips of clear liquid. Reported leg/back pain at 7/10, Dilaudid effective. Patient is using call light appropriately for needs, intentional rounding in place.
[2016-12-13 07:16] LABS: BASOPHILS % (AUTO) 0.4 % (0-3); EOSINOPHILS % (AUTO) 0.2 % (0-5); MONOCYTES % (AUTO) 20.2 % (4-12); Mean Corpuscular Volume 84.5 fL (81-100); NEUTROPHILS % (AUTO) 47.2 % (40-74); Platelet Count 180 bil/L (150-400)
[2016-12-13 07:36] LABS: Magnesium 1.7 mg/dL (1.6-2.6); Phosphorus 3.4 mg/dL (2.5-4.9)
[2016-12-13] MEDS: Pantoprazole 20 mg ER24 Tablet PO SCH (08:13)
--- NOTE | 2016-12-13 08:50 | NUR ---
JACINTO signed GAVIOTA Prater
--- NOTE | 2016-12-13 11:47 | PCM.PNMED ---
Subjective Date of Service Dec 13, 2016 Subjective Patient was less bradycardic after stopping beta dwayne yesterday At nausea a few times but no vomiting, stated that whenever she got sick, she had multiple nausea frequently Exam Vital Signs Vital Sign - Last Date Time Temp Pulse Resp B/P Pulse Ox O2 Delivery O2 Flow Rate FiO2 12/13/16 10:06 50 12/13/16 09:39 36.9 16 160/81 95 Room Air 12/12/16 02:31 2.00 Intake and Output 12/12/16 12/12/16 12/13/16 Cumulative From/Thru 15:00 23:00 07:00 12/10/16 23:12 - 12/13/16 06:19 Intake Total 50 ml 851 ml 639 ml 4060 ml Output Total 600 ml 1650 ml 3790 ml Balance -550 ml -799 ml 639 ml 270 ml Intake Oral 50 ml 425 ml 1192 ml IV Total 426 ml 639 ml 2868 ml Output Urine Total 600 ml 1350 ml 3490 ml Emesis 300 ml 300 ml # Bowel Movements 0 Exam NAD, comfortably laying down on the bed no JVD, MMM, no LAD RRR, nl s1, s2 and gr3 roy systolic murmur at the right upper sternal border CTAB, no w,c S,ND,NT,normoactive BS+ warm, no edema, pulses 2/2 IVs and Medications Medications Reviewed: Medications were reviewed in detail Lab and Diagnostics Result Diagram: 12/13/16 0630 12/13/16 0630 Microbiology Nasal flu PCR positive for flu a X-Rays, CTs and MRIs Chest x-ray is unremarkable 12-lead ECG ECG sinus rhythm with no acute ST segment changes Cardiac Echo Impressions Echocardiogram Report Name: MARK LOPEZ LStudy Date: 12/12/2016 Height: 64 in Hospital Exam Location: [facility] Weight: 180 lb Gender: Female BSA: 1.9 m2 : 1945 Age: 71 yrs BP: 160/76 mmHg Reason For Study: ACS Ordering Physician: Performed By: Juan Ying Interpretation Summary The patient was bradycardic with a heart rate of 43-56 beats per minute. The left ventricle is normal in size. There is normal left ventricular wall thickness. The ejection fraction is estimated to be 60-65%. There are no focal wall motion abnormalities. There is mild to moderate aortic stenosis. The peak aortic velocity is 2.7 m/sec. The calculated aortic valve area is 1.5 cm2. The right ventricular systolic pressure is estimated at 30 mmHg assuming a right atrial pressure of 3 mm Hg. No other echocardiographic abnormalities seen. Compared to the prior echo report on 09/11/2015, there is no significant change. Assessment & Plan Acute, active #Influenza A. POA. Patient's respiratory function remained stable, afebrile since 12/11 -Continue Tamiflu twice a day for a total course of 5 days. -O2 supplement, target>95% -stopped IVF as patient appeared euvolemic, TTE 12/12 showed stable . #Hypertension, essential. POA. uncontrolled 160-190s off on home meds, resume HCTZ12.5mg yesterday, increase to 25mg, resume [id number] today #nausea/vomiting, POA, symptoms were resolving, controlled with zofran, remained benign abdomen. likely part of flu sx -will consider abd images for further eval if sx continues Chronic, stable #Questionable ACS, POA, patient was started on BB, aspirin and heparin given acutely elevated troponin, however, serial troponins remained normal, EKGs and echocardiogram did not suggest ischemic disease. Therefore, aspirin/BB/heparin stopped. # Chronic pain syndrome, continues opiate dependency. POA. Resumed home Oxycodone 10mg q12h dispo:likely d/c tomorrow to assisted living diet: Regular diet dvt ppx:SCD Full code Resuscitation Status: CPR: Attempt Resuscitation Time spent 35min Brock Bunch MD Dec 13, 2016 11:47
[2016-12-13] MEDS: 0.9% Sodium Chloride 1,000 ML IV SCH (12:22)
--- NOTE | 2016-12-13 14:38 | NUR ---
Daily update Patient alert and oriented X3. Patient blood pressure medications have changed to include Lisinopril 5mg and Blood pressure has lowered to within normal limits. Patient nausea and vomiting has decreased, but nausea still remains and Zofran was administered. Patient appetite has increased slightly today and is tolerating clear liquid diet well.
[2016-12-14 00:26] VITALS: BP 188/74; PULSE 77; RESP 18; O2SAT 100
[2016-12-14 03:57] VITALS: BP 136/95; PULSE 85; RESP 18; O2SAT 95
[2016-12-14] MEDS: HYDROmorphone 0.5 mg/0.5 mL iSecure Syringe IVPUSH PRN (04:02)
[2016-12-14] MEDS: Ondansetron 2 mg/mL 2 mL Inj IVPUSH PRN (04:02)
[2016-12-14 05:28] VITALS: BP 160/79; PULSE 50; RESP 18; O2SAT 96
[2016-12-14 05:39] VITALS: BP 175/64; PULSE 78; RESP 18; O2SAT 96
--- NOTE | 2016-12-14 05:56 | NUR ---
Noc-Pain/bradycardic Pt complains of pain all around her body. Administered PRN pain medication. Pt denies chest pain, sob. Has been feeling nauseated but states a relief from 4mg of zofran. Pt has been bradycardic around 50's per monitor jean while sleeping.
[2016-12-14 06:09] LABS: BASOPHILS % (AUTO) 0.6 % (0-3); EOSINOPHILS % (AUTO) 2.9 % (0-5); MONOCYTES % (AUTO) 17.7 % (4-12); Mean Corpuscular Hemoglobin 28.3 pg (27.0-35.0); Mean Corpuscular Volume 83.6 fL (81-100); NEUTROPHILS % (AUTO) 44.9 % (40-74); Platelet Count 192 bil/L (150-400)
[2016-12-14] MEDS: Pantoprazole 20 mg ER24 Tablet PO SCH (06:12)
[2016-12-14 06:30] LABS: Magnesium 1.7 mg/dL (1.6-2.6); Phosphorus 3.7 mg/dL (2.5-4.9)
[2016-12-14] MEDS: 0.9% Sodium Chloride 1,000 ML IV SCH (09:18)
[2016-12-14 09:22] VITALS: BP 152/104; PULSE 94; RESP 18; O2SAT 96
[2016-12-14] MEDS ORDERED: DiphenOXYlate-Atropine 2.5 mg-0.025 mg Tablet PO SCH (09:25)
[2016-12-14] MEDS ORDERED: OSEL30CA PO (11:00)
--- NOTE | 2016-12-14 11:07 | PCM.DIMED ---
Discharge Instructions Date of Service Dec 14, 2016 Dates of Hospitalization Dec 11, 2016 at 09:07 Discharge Diagnosis Discharge Diagnosis influenza A infection Medication Instructions Please continue to take Tamiflu for 2more days Please take 2tablets of hydrochlorothiazide for better blood pressure control Diet No restrictions Activity No restrictions Patient Instructions You were hospitalized with influenza infection, treated appropriately with anti- viral medicine. Please finish flu medicine as directed. Follow-up plan Please follow up with your doctor at [facility] residency clinic in 2weeks Follow-up Provider: [facility] Follow-up with PCP in: 2 weeks Brock Bunch MD Dec 14, 2016 11:07
[2016-12-14] MEDS ORDERED: HYDR12.55 PO (11:08)
[2016-12-14 11:18] VITALS: PULSE 63
--- NOTE | 2016-12-14 11:31 | NUR ---
Social Work-discharge: Data:EMR Reviewed. Pt is on day 3 of hospitalization for N stemi per H&P. Pt is medically stable to discharge. Pt lives on [facility]. SW spoke with pt, who is declining HH. Per RN notes, pt has been up independent, pt uses w/c at baseline, but is able to transfer. SW updated pt at bedside of discharge and she states that [facility] will need to pick her up. SW arranged [facility] transport for 1230. Pt states she will call her son and inform him she is discharging. All updated and agreeable to plan. Assessment:pt who resides at [facility] I. Plan:Pt to discharge back to [facility]-independent living today via [facility] transport at 1230. All updated and agreeable to plan. GAVIOTA Clarke
--- NOTE | 2016-12-14 12:55 | NUR ---
Discharge Patient departed unit via wheelchair, accompanied by staff from [facility]. Patient alert and oriented x 3 at time of discharge. Patient up independent to bathroom, denied shortness of breath (on room air), chest pain, nausea abdominal discomfort. Discharge instructions/medication reviewed with patient prior to discharge. All questions addressed. Discharge instructions, patient belongings and prescriptions in hand.
[2016-12-15] MEDS ORDERED: Pantoprazole 20 mg ER24 Tablet PO SCH (06:30)
--- NOTE | 2016-12-16 13:24 | PCM.DC.MED ---
Discharge Summary Date of Service Dec 14, 2016 Dates of Hospitalization Date of Hospital Admission Dec 11, 2016 at 09:07 Date of Discharge: Dec 14, 2016 Providers: Admitting Physician: Jasbir Loco MD Primary Care Physician: JOHANNA Daniel Residency Attending Physician: Jasbir Loco MD Diagnosis at Time of Discharge Diagnosis at Time of Discharge 1.Influenza A viral infection, 2.Hypertension, 3.nausea/vomiting, likely part of flu sx 4Questionable ACS, 5Chronic pain syndrome Procedures XRay, CTs & MRIs Chest x-ray is unremarkable ECG 12 Lead ECG sinus rhythm with no acute ST segment changes Cardiac Echo Impression Echocardiogram Report Name: MARK LOPEZ LStudy Date: 12/12/2016 Height: 64 in Hospital Exam Location: [facility] Weight: 180 lb Gender: Female BSA: 1.9 m2 : 1945 Age: 71 yrs BP: 160/76 mmHg Reason For Study: ACS Ordering Physician: Performed By: Juan Ying Interpretation Summary The patient was bradycardic with a heart rate of 43-56 beats per minute. The left ventricle is normal in size. There is normal left ventricular wall thickness. The ejection fraction is estimated to be 60-65%. There are no focal wall motion abnormalities. There is mild to moderate aortic stenosis. The peak aortic velocity is 2.7 m/sec. The calculated aortic valve area is 1.5 cm2. The right ventricular systolic pressure is estimated at 30 mmHg assuming a right atrial pressure of 3 mm Hg. No other echocardiographic abnormalities seen. Compared to the prior echo report on 09/11/2015, there is no significant change. Brief History H&P performed by Dr. Loco on December 11 This is a 71-year-old resident of [place]. She presents with 2 days history of viral symptoms and a confirmed flu a PCR. She has had rhinorrhea and a cough as well as nausea and repeated emesis for about a day. No fevers or chills. No overt dyspnea. No chest pain or palpitations. She also denies diarrhea. There is a flu outbreak at her assisted living facility. In the ED she did have Formation of flu a and an elevated troponin with normal appearing electrocardiogram. She notes a possible history of a silent heart attack in the past but no recent cardiac testing. Again she denies any chest pain at rest or with exertion. Also denies leg edema, orthopnea or overt shortness of breath either at rest or with exertion. Hospital Course 1.Influenza A viral infection, POA. Throughout the course, Patient's respiratory function remained stable, afebrile since 12/11, ratio was continued Tamiflu twice a day for a total course of 5 days. 2.Hypertension, POA. Initially blood pressure was uncontrolled 160-190s off on home meds, better controlled with resuming home meds HCTZ12.5mg, eventually increased to 25mg, also resumed [id number] 3.nausea/vomiting, POA, symptoms were resolving, controlled with zofran, remained benign abdomen. likely part of flu sx 4Questionable ACS, POA, on admission, patient was started on BB, aspirin and heparin given acutely elevated troponin, however, serial troponins remained normal, EKGs and echocardiogram did not suggest ischemic disease. Therefore, aspirin/BB/heparin stopped. 5Chronic pain syndrome, continues opiate dependency. POA. Resumed home Oxycodone 10mg q12h Exam Vital Signs (Last) Date Time Temp Pulse Resp B/P Pulse Ox O2 Delivery O2 Flow Rate FiO2 12/14/16 11:18 63 12/14/16 11:16 Supplement Oxygen 12/14/16 09:22 36.8 18 152/104 96 12/12/16 02:31 2.00 Exam NAD, comfortably laying down on the bed no JVD, MMM, no LAD RRR, nl s1, s2 and gr3 roy systolic murmur at the right upper sternal border CTAB, no w,c S,ND,NT,normoactive BS+ warm, no edema, pulses 2/2 Test 12/10/16 00:40 12/10/16 23:42 12/11/16 21:14 12/12/16 13:36 Urine Color Straw (YELLOW) Urine Appearance Clear (CLEAR,HAZY) Urine pH 6.0 (5.0-8.0) Urine Specific [place] 1.010 (1.003-1.035) Urine Protein Negativemg/dL (NEG,TRACE) Urine Glucose (UA) Negativemg/dL (NEGATIVE) Urine Ketones Negativemg/dL (NEGATIVE) Urine Occult Blood Negative (NEGATIVE) Urine Nitrite Negative (NEGATIVE) Urine Bilirubin Negative (NEGATIVE) Urine Urobilinogen Normalmg/dL (NORMAL) Urine Leukocyte Esterase Negative (NEGATIVE) Urine RBC 0-2/hpf (0-2) Urine WBC 0-5/hpf (0-5) Urine Epithelial Cells Few/hpf (NONE-MOD) Urine Crystals None seen (NONE SEEN) Urine Bacteria None/hpf (NONE-FEW) Urine Hyaline Casts None/lpf (NONE) Urine Granular Casts None seen (NONE SEEN) Urine Waxy Casts None seen (NONE SEEN) Urine Red Blood Cell Casts None seen (NONE SEEN) Urine White Blood Cell Casts None seen (NONE SEEN) Urine Mucus None seen (None Seen) Urine Trichomonas None seen (NONE SEEN) Urine Yeast None (NONE SEEN) Urine Culture Reflexed Not indicated Prothrombin Time 10.7sec (8.1-12.5) Prothromb Time International Ratio 1.00ratio Lactic Acid Level 1.8mmol/L (0.4-2.0) Lipase 23U/L (13-60) Troponin T 0.010ug/L (0.0-0.011) Activated Partial Thromboplast Time 53.4sec (22.8-33.0) Test 12/14/16 05:47 White Blood Count 5.4th/mm3 (3.8-10.1) Red Blood Count 4.95mil/mm3 (3.90-5.20) Hemoglobin 14.0g/dL (12.0-15.6) Hematocrit 41.4% (35.0-46.0) Mean Corpuscular Volume 83.6fL (81-100) Mean Corpuscular Hemoglobin 28.3pg (27.0-35.0) Mean Corpuscular Hemoglobin Concent 33.8% (32.0-37.0) Red Cell Distribution Width 13.5% (12.3-15.4) Platelet Count 192bil/L (150-400) Neutrophils (%) (Auto) 44.9% (40-74) Lymphocytes (%) (Auto) 33.3% (14-46) Monocytes (%) (Auto) 17.7% (4-12) Eosinophils (%) (Auto) 2.9% (0-5) Basophils (%) (Auto) 0.6% (0-3) Sodium Level 139mEq/L (134-144) Potassium Level 3.7mEq/L (3.5-5.2) Chloride Level 99mEq/L (97-108) Carbon Dioxide Level 22mmol/L (18-29) Blood Urea Nitrogen 12mg/dL (8-27) Creatinine 1.05mg/dL (0.57-1.00) Estimat Glomerular Filtration Rate 74mL/min (>59) Glucose Level 106mg/dL (60-99) Calcium Level 8.9mg/dL (8.5-10.1) Phosphorus Level 3.7mg/dL (2.5-4.9) Magnesium Level 1.7mg/dL (1.6-2.6) Total Bilirubin 0.2mg/dL (0.0-1.2) Aspartate Amino Transf (AST/SGOT) 58U/L (0-50) Alanine Aminotransferase (ALT/SGPT) 48U/L (0-32) Alkaline Phosphatase 86U/L (25-165) Total Protein 7.3g/dL (6.4-8.4) Albumin 3.6g/dL (3.4-5.0) Microbiology Results Nasal flu PCR positive for flu a Discharge Medications Discharge Medications Aspirin (Aspirin) 81 Mg Tablet 81 MG PO DAILY (Reported) Calcium Crb&Cit/D3/Min34/Yaya (Citracal + Bone Density Tablet) 1 Each Tablet 1 TAB PO BID (Reported) Cholecalciferol (Vitamin D3) (Vitamin D3) 5,000 Unit Tablet 5,000 UNIT PO DAILY (Reported) Diphenoxylate/Atropine 2.5-0.025 mg (Lomotil 2.5-0.025 mg) 1 Each Tablet 8 TAB PO QAM (Reported) Fluoxetine (Prozac) 20 Mg Capsule 20 MG ORAL DAILY (Reported) Gabapentin (Gabapentin) 800 Mg Tablet 800 MG PO TID (Reported) Hydrochlorothiazide (Hydrochlorothiazide) 12.5 Mg Tablet 25 MG PO DAILY Prescribed by: BROCK ESCALANTE MD Levothyroxine (Levothyroxine) 75 Mcg Tablet 75 MCG PO DAILY (Reported) Lisinopril (Lisinopril) 5 Mg Tablet 5 MG PO DAILY (Reported) Methylcellulose (with Sugar) (Citrucel Powder) 850 Gm Powder 850 GM PO DIRECTED (Reported) Multivits-Min/Iron/FA/Lutein (Centrum Silver Women Tablet) 8 Mg Iron-400 Mcg- 300 Mcg Tablet 1 TAB PO DAILY (Reported) Omeprazole (Omeprazole) 20 Mg Capsule.dr 20 MG PO DAILY (Reported) Oseltamivir Phosphate (Tamiflu) 30 Mg Capsule 30 MG PO BID Prescribed by: BROCK ESCALANTE MD Oxycodone (Roxicodone) 5 Mg Tablet 10 MG PO TID (Reported) Solifenacin Succinate (Vesicare) 5 Mg Tablet 10 MG PO DAILY (Reported) As needed Nitroglycerin SL (Nitrostat) 0.4 Mg Tab.subl 0.4 MG SL Q5MIN PRN PRN For Chest Pain (Reported) Promethazine HCl (Phenergan) 25 Mg Supp.rect 25 MG RC TID PRN PRN For Nausea/ Vomiting Prescribed by: FERN WILLS MD Additional med instructions Please continue to take Tamiflu for 2more days Please take 2tablets of hydrochlorothiazide for better blood pressure control Followup Plan Disposition: [facility] Follow-up plan Please follow up with your doctor at [facility] residency clinic in 2weeks Discharge Diet: No restrictions Discharge Activity: No restrictions Patient Instructions You were hospitalized with influenza infection, treated appropriately with anti- viral medicine. Please finish flu medicine as directed. Follow-up Provider: [facility] Follow-up with PCP in: 2 weeks Time spent 65 minutes Brock Escalante MD Dec 16, 2016 12:17
== END 2016-12-14 12:53 | disposition home or self-care (01) | DRG 194 ==
LOC: EDUNIT# 22:58 → SED 22:58 → EDBD 22:58 → SED 12-11 06:55 → OFED 12-11 09:07 → MPC 12-11 12:17
PROVIDERS: ADMIT Hospitalist; ATTEND Hospitalist
DX: J10.1 Influenza due to other identified influenza virus with other respiratory manifestations (principal); K91.2 Postsurgical malabsorption, not elsewhere classified; F11.20 Opioid dependence, uncomplicated; F03.90 Unspecified dementia, unspecified severity, without behavioral disturbance, psychotic disturbance, mood disturbance, and anxiety; Z79.82 Long term (current) use of aspirin; Z86.73 Personal history of transient ischemic attack (TIA), and cerebral infarction without residual deficits; G89.4 Chronic pain syndrome; E86.9 Volume depletion, unspecified; I10 Essential (primary) hypertension

== ENCOUNTER 2017-01-13 11:52 | Emergency (ER) | payer MEDICARE, OTHER ==
[~2017-01-13] VITALS: Ht 167.6 cm; Wt 86.3 kg
[~2017-01-13 11:52] MED LIST changes: +HYDR12.55 PO; +LISI-571 PO; -METH750T3 PO; +OSEL30CA PO; +OXYC-474 PO; -OXYC10TA8 PO; +PROZ20 ORAL; -SOLI10TA PO; +SOLI5TAB2 PO
[2017-01-13 12:02] VITALS: BP 161/94; PULSE 71; RESP 15; O2SAT 94
--- NOTE | 2017-01-13 13:22 | ED.REPORT ---
HPI-Abd Pain F 40 and Over Date of Service Jan 13, 2017 ED Provider: Sonny Charles MD The patient is a 71 year old female with history of hypothyroidism, hypertension , esophageal spasms, chronic pain with opiate habituation, ischemic colitis, small bowel obstructions, and previous subtotal colectomy, who presents to the emergency department from urgent are for left flank and LLQ abdominal pain that started this morning at 0900. The pain radiates into her suprapubic region. Her pain was initially a dull ache but has gradually worsened throughout the day. Her pain waxes and wanes but never fully goes away. She has never had similar symptoms in the past. She denies dysuria, hematuria, freuqneyc/urgency changes, nausea, vomiting, bloody stools, melena or diarrhea. Nursing Notes Stated Complaint: ABDOMINAL PAIN/SENT FROM Chief Complaint: Female Abdominal Pain Nursing Notes Reviewed: Yes Allergies: Coded Allergies: baclofen (Verified Adverse Reaction, Severe, confusion, altered LOC, ) NSAIDS (Non-Steroidal Anti-Inflamma (Unverified Adverse Reaction, Intermediate, ulcers, 01/23/16) chlorpromazine HCl (Verified Adverse Reaction, Intermediate, itchy nose, anxiety, rls, 01/23/16) metoclopramide HCl (Verified Adverse Reaction, Intermediate, Agitation, 01/23/16) midazolam (Unverified Adverse Reaction, Intermediate, 01/23/16) Extended memory loss morphine (Verified Adverse Reaction, Intermediate, RLS, 01/23/16) Iodinated Contrast Media - Oral and (Verified Adverse Reaction, Mild, ) PT. states she had a rxn to iodine contrast at 17 years of age. Has not reacted to contrast CT in recent years. No rxn to topical iodine codeine (Verified Adverse Reaction, Mild, "doesn't work", 01/23/16) fentanyl (Verified Adverse Reaction, Mild, "I don't like how it makes me feel", 01/23/16) meperidine (Verified Adverse Reaction, Mild, RLS, 01/23/16) Scheduled Aspirin (Aspirin) 81 Mg Tablet 81 MG PO DAILY Calcium Crb&Cit/D3/Min34/Yaya (Citracal + Bone Density Tablet) 1 Each Tablet 1 TAB PO BID Cholecalciferol (Vitamin D3) (Vitamin D3) 5,000 Unit Tablet 5,000 UNIT PO DAILY Diphenoxylate/Atropine 2.5-0.025 mg (Lomotil 2.5-0.025 mg) 1 Each Tablet 8 TAB PO QAM Fluoxetine (Prozac) 20 Mg Capsule 20 MG ORAL DAILY Gabapentin (Gabapentin) 800 Mg Tablet 800 MG PO TID Hydrochlorothiazide (Hydrochlorothiazide) 12.5 Mg Tablet 25 MG PO DAILY Levothyroxine (Levothyroxine) 75 Mcg Tablet 75 MCG PO DAILY Lisinopril (Lisinopril) 5 Mg Tablet 5 MG PO DAILY Methylcellulose (with Sugar) (Citrucel Powder) 850 Gm Powder 850 GM PO DIRECTED Multivits-Min/Iron/FA/Lutein (Centrum Silver Women Tablet) 8 Mg Iron-400 Mcg- 300 Mcg Tablet 1 TAB PO DAILY Omeprazole (Omeprazole) 20 Mg Capsule.dr 20 MG PO DAILY Oseltamivir Phosphate (Tamiflu) 30 Mg Capsule 30 MG PO BID Oxycodone (Roxicodone) 5 Mg Tablet 10 MG PO TID Solifenacin Succinate (Vesicare) 5 Mg Tablet 10 MG PO DAILY Tamsulosin (Flomax) 0.4 Mg Capsule 0.4 MG PO DAILY Scheduled PRN Hydrocodone-Acetaminophen 5-325 mg (Hydrocodone-Acetaminophen 5-325 mg) 1 Each Tablet 1 TABLET PO Q4H PRN PRN For Pain Nitroglycerin SL (Nitrostat) 0.4 Mg Tab.subl 0.4 MG SL Q5MIN PRN PRN For Chest Pain Promethazine HCl (Phenergan) 25 Mg Supp.rect 25 MG RC TID PRN PRN For Nausea/ Vomiting General Time Seen by MD: 13:16 Chief Complaint Abdominal pain Hx Obtained From: Patient Arrived By: Walk-in Sudden in Onset?: Yes Onset Occurred: 5 - 8 hours ago Symptom Duration: Since onset Progression since Onset: Constant, Gradually worsening Location: : LLQNo: Flank left Quality: Aching, Dull, Painful Radiation: : Suprapubic Severity: Current: Moderate Severity: Maximum: Severe Pertinent Negative: Pt denies other symptoms Recent Healthcare: No recent hospitalization, Recent doctor visit Similar Sx Previous: No Past Medical History Past Medical History 1. Hypothyroidism 2. Hypertension 3. Restless leg syndrome 4. Esophageal spasms 5. Chronic pain with opiate habituation 6. Osteoporosis with L4 compression fracture 7. Osteoarthritis(sees Dr. Hart) 8. Alleged CAD (no interventions, no hospitalization- per patient's report) 9. Alleged CVA ( found on MRI after she presented with symptoms of "acting goofy" when she was in her mid 50s)- no residual symptoms 10. Overactive bladder 11. Vitamin B12 deficiency 12. History of ischemic colitis resulting in subcolectomy of her sigmoid colon in her mid 40s 13. Chronic diarrhea due to colectomy 14. Hospitalized for small bowel obstruction in 2011 and March 2013 Bifurcate uterus Congential colon problems Congenital three kidneys Short gun syndrome Dementia SVT paroxsymal Reports: Mental illness Reports: Depression Past Surgical History Vagotomy and pyloroplasty for peptic ulcer disease in the very distant past. Subtotal colectomy. Hysterectomy. Bilateral salpingo-oophorectomy. Appendectomy. Laparotomy with enterolysis on several occasions. 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 Physical Exam Vital Signs Vital Signs (First) Date Time Temp Pulse Resp B/P Pulse Ox O2 Delivery O2 Flow Rate FiO2 01/13/17 12:02 36.3 71 15 161/94 94 Room Air Initial VS: Reviewed Head / Eyes: Atraumatic, Normocephalic, PERRL ENT: Mucous membranes moist, Conjunctiva normal, No scleral icterus Neck: Supple, Non-tender, Full range of motion Lymphatic: No lymphadenopathy Extremities: Vascular intact, Neuro intact, No swelling, No tenderness Skin: Warm, Dry, No cyanosis Neurologic: Alert, Oriented, Nonfocal Psychiatric: Mood/affect normal, Behavior normal, Normal thought content General/Constitutional: Awake, Cooperative Respiratory / Chest: Atraumatic, Breath sounds NL, Breath sounds = bilat, No respiratory distress, No rales, No rhonchi, No wheezing, No stridor Cardiovascular: Heart rate NL, Regular rhythm, Heart sounds NL, No gallop, No murmurs, No rubs, Peripheral circulation NL Abdomen: Soft, No guarding, No rebound, BS normoactive, No distention, No hernia, No palpable mass, No pulsatile mass Tenderness/Guarding/Rebound: Positive: Tender LLQ... Well healed vertical midline scar about the abdomen Back: No midline vertebral tend ENT: Airway patent Mouth: Positive: Mucous membranes dry Lower Extremity / Pelvis / MS: Neurologic intact, Vascular intact No calf swelling or tenderness Interpretation & Diagnostics Lab Results Interpretation Result Diagram: 01/13/17 1141 01/13/17 1141 Test 01/13/17 11:11 01/13/17 11:41 Hold Urine Received (Received) White Blood Count 7.3th/mm3 (3.8-10.1) Red Blood Count 4.35mil/mm3 (3.90-5.20) Hemoglobin 12.1g/dL (12.0-15.6) Hematocrit 37.8% (35.0-46.0) Mean Corpuscular Volume 86.9fL (81-100) Mean Corpuscular Hemoglobin 27.8pg (27.0-35.0) Mean Corpuscular Hemoglobin Concent 32.0% (32.0-37.0) Red Cell Distribution Width 14.3% (12.3-15.4) Platelet Count 222bil/L (150-400) Neutrophils (%) (Auto) 57.1% (40-74) Lymphocytes (%) (Auto) 24.8% (14-46) Monocytes (%) (Auto) 10.9% (4-12) Eosinophils (%) (Auto) 6.2% (0-5) Basophils (%) (Auto) 0.4% (0-3) Hold Purple Top Tube Received (Received) Prothrombin Time 10.1sec (8.1-12.5) Prothromb Time International Ratio 0.95ratio Hold Blue Top Tube Received (Received) Sodium Level 137mEq/L (134-144) Potassium Level 4.4mEq/L (3.5-5.2) Chloride Level 99mEq/L (97-108) Carbon Dioxide Level 24mmol/L (18-29) Blood Urea Nitrogen 16mg/dL (8-27) Creatinine 1.04mg/dL (0.57-1.00) Estimat Glomerular Filtration Rate 74mL/min (>59) Glucose Level 127mg/dL (60-99) Lactic Acid Level 2.2mmol/L (0.4-2.0) Calcium Level 9.0mg/dL (8.5-10.1) Magnesium Level 1.9mg/dL (1.6-2.6) Total Bilirubin 0.2mg/dL (0.0-1.2) Aspartate Amino Transf (AST/SGOT) 32U/L (0-50) Alanine Aminotransferase (ALT/SGPT) 20U/L (0-32) Alkaline Phosphatase 102U/L (25-165) Total Protein 7.4g/dL (6.4-8.4) Albumin 3.9g/dL (3.4-5.0) Lipase 34U/L (13-60) Hold Red Top Tube Received (Received) Hold Tubac Top Tube Received (Received) CT Abd / Pelvis Interpretation CT KUB IMPRESSION: 1. A 3 mm obstructive stone at the left UVJ, which may be just passed into the bladder. There is mild left hydronephrosis and hydroureter with perinephric stranding. 2. Two other small 2-4 mm nonobstructive stones in the inferior pole of the left kidney. The left kidney is slightly atrophic with mild cortical thinning. There is left renal cortical scar in the inferior pole. 3. Mild focal thickening of the urinary bladder at the left UVJ, most likely caused by edema rather than neoplasm given a stone is noted in this area. 4. Mild to moderate non-acute compression fracture at L4. Dictated by: Aimee Verma M.D. on 01/13/2017 at 17:08 Interpretation / Wet Read by: Interpret - Radiologist Re-Eval/Medical Decision Med Decision/Clinical Course The patient is a 71 year old female with history of hypothyroidism, hypertension , esophageal spasms, chronic pain with opiate habituation, ischemic colitis, small bowel obstructions, and previous subtotal colectomy, who presents to the emergency department from urgent are for left flank and LLQ abdominal pain that started this morning at 0900. The pain radiates into her suprapubic region. Her pain was initially a dull ache but has gradually worsened throughout the day. Her pain waxes and wanes but never fully goes away. She has never had similar symptoms in the past. She denies dysuria, hematuria, freuqneyc/urgency changes, nausea, vomiting, bloody stools, melena or diarrhea. Emergency department the patient appears uncomfortable but was otherwise afebrile with stable vital signs. Abdominal examination is relatively benign without any guarding, rigidity or rebound. Pain was treated with IV fluids, Zofran and hydromorphone. She had excellent improvement in her symptoms. CT shows evidence of a 3 mm obstructive stone at the left UVJ. Laboratory studies notable as below: CBC unremarkable, CMP unremarkable, lactate 2.2, urine dip negative. Now, lactate was minimally elevated though not significantly. I ordered lactate in order to assess for findings of significant ischemia in the setting of her remote history of ischemic colitis, that being said, the patient's presentation is highly consistent with ureteral colic and this is confirmed by her CT scan. Pain is not out of proportion and her abdominal examination is benign. In this clinical picture I am not concerned for an acute ischemic process and I do not feel that further workup based upon minimally elevated lactic acid is indicated. The patient reported significant symptomatic improvement and I feel that she is appropriate for discharge home. She has been prescribed Dracut for pain, Flomax and provided with a urine strainer as well as referral to urology. Serial abdominal examinations remained benign. Follow-up and return precautions were reviewed in detail and she was discharged in excellent condition. Source of Hx: Old records Re-Evaluation/Progress : Time of Eval: 17:28 Re-Evaluation/Progress Note: Rechecked the patient. Discussed plan for discharge. All questions were addressed. Counseled Regarding: Diagnosis, Lab results, Need for follow-up, When/why to return to ED Discharge & Departure Primary Impression: Kidney stone on left side Additional Impressions: History of ischemic colitis History of colon resection Left lower quadrant pain Left flank pain Elevated lactic acid level Disposition: Home Discharge Condition All VS Reviewed: Yes Condition: Stable Patient Instructions: Renal Colic (ED) Additional Instructions: Thank you for seeking care at the emergency room. It is difficult for us to make definitive diagnoses in the ED but we believe that you are experiencing pain from a kidney stone. Our primary goal today in the ED was to evaluate you for any life-threatening conditions. Your evaluation was reassuring. You will be discharged with a prescription for Dracut and Flomax. Use the urine strainer to catch the stone. You should follow-up with a urologist. We have given you a referral to Dr. Maldonado. Call his office tomorrow to schedule an appointment. You should return to the ED immediately if you develop increased pain, fevers, vomiting, lightheadedness, weakness or any other concerning signs or symptoms. Thank you for letting us partake in your care today. Referrals: [facility] (PCP) Saumya Attestation Portions of this note were transcribed by Alexandrea Watts. I, Dr. Charles personally performed the history, physical exam and medical decision-making; I reviewed and confirmed the accuracy of the information in the transcribed note. Signed by: Saumya Ibarra, 01/13/2017 at 1740. copies to: [facility] Sonny Charles MD Jan 13, 2017 13:22 Alexandrea Watts Jan 13, 2017 13:30
[2017-01-13] MEDS ORDERED: 0.9% Sodium Chloride 1,000 ML IV ONE (14:00)
[2017-01-13] MEDS ORDERED: Ondansetron 2 mg/mL 2 mL Inj IVPUSH ONE (14:00)
[2017-01-13 14:14] LABS: BASOPHILS % (AUTO) 0.4 % (0-3); EOSINOPHILS % (AUTO) 6.2 % (0-5); MONOCYTES % (AUTO) 10.9 % (4-12); Mean Corpuscular Hemoglobin 27.8 pg (27.0-35.0); Mean Corpuscular Volume 86.9 fL (81-100); NEUTROPHILS % (AUTO) 57.1 % (40-74); Platelet Count 222 bil/L (150-400)
[2017-01-13 14:18] LABS: INR 0.95 ratio
[2017-01-13] MEDS: HYDROmorphone 0.5 mg/0.5 mL iSecure Syringe IVPUSH PRN ×3 (14:21→17:00)
[2017-01-13 14:24] LABS: Magnesium 1.9 mg/dL (1.6-2.6)
--- NOTE | 2017-01-13 17:21 | DRSVH ---
PROCEDURE: CT KUB ([id number]) INDICATIONS: Left flank/abd pain, suspect renal colic. TECHNIQUE: Noncontrast 5 mm thick sections acquired from the diaphragms to the symphysis. 5 mm thick coronal an d sagittal reformats were then performed. For radiation dose reduction, the following was used: aut omated exposure control, adjustment of mA and/or kV according to patient size. COMPARISON: [facility], CT, CT ABD PELVIS WO CON, 11/13/2015, 19:35. [facility], CT, CT ABD PELVIS WO CON, 01/23/2016, 18:41. FINDINGS: Image quality: Excellent. Lung bases: There are bibasilar scars/atelectasis. Heart size is normal. There is moderate coronary artery calcification consistent with atherosclerosis. Urinary system: There is a 3 mm stone at the urinary bladder at the left UVJ. There is mild left hyd ronephrosis and hydroureter. There are 2 other stones in the inferior pole of the left kidney measuri ng 2-4 mm. No right renal calculi. The left kidney is atrophic with cortical thinning. There is a c ortical scar in the inferior pole of the left kidney. Mild perinephric stranding is present. The righ t kidney is normal in size without hydronephrosis or perinephric stranding. Bladder is not fully dist ended. There is mild focal thickening at the left UVJ. Other solid organs: Liver and spleen are normal in size. Gallbladder is is normal. Pancreas is norm al in contours. No adrenal nodules. Peritoneum and bowel: Unenhanced bowel loops demonstrate normal wall thickness and caliber. No free fluid or air. Nodes and vessels: No retroperitoneal or mesenteric adenopathy by size criteria. Aorta and inferior vena cava are normal in caliber. Abdominal wall: No ventral hernias. Pelvis: No free pelvic fluid. No inguinal hernias or adenopathy. Bones: No suspicious bony lesions. Mild to moderate compression fracture at L4, unchanged. Degenerat farida changes are noted in lumbar spine. IMPRESSION: 1. A 3 mm obstructive stone at the left UVJ, which may be just passed into the bladder. There is mild left hydronephrosis and hydroureter with perinephric stranding. 2. Two other small 2-4 mm nonobstructive stones in the inferior pole of the left kidney. The left kid terri is slightly atrophic with mild cortical thinning. There is left renal cortical scar in the inferi or pole. 3. Mild focal thickening of the urinary bladder at the left UVJ, most likely caused by edema rather t barba neoplasm given a stone is noted in this area. 4. Mild to moderate non-acute compression fracture at L4. Dictated by: Aimee Verma M.D. on 01/13/2017 at 17:08 Approved by: Aimee Verma M.D. on 01/13/2017 at 17:20
[2017-01-13] MEDS ORDERED: TAMS0.4C98 PO (17:27)
[2017-01-13] MEDS ORDERED: HYDR-4003 PO (17:27)
[2017-01-13 17:51] LABS: APPEARANCE,URINE CLEAR (CLEAR,HAZY); COLOR,URINE YELLOW (YELLOW); OCCULT BLOOD,URINE NEGATIVE (NEGATIVE); PH,URINE 6.5 (5.0-8.0); UROBILINOGEN,URINE NORMAL (NORMAL)
[2017-01-13 18:05] VITALS: BP 154/90; PULSE 73; RESP 16; O2SAT 95
== END 2017-01-13 18:06 | disposition home or self-care (01) ==
LOC: SED 11:52
DX: N20.0 Calculus of kidney (principal); R74.0 Nonspecific elevation of levels of transaminase and lactic acid dehydrogenase [LDH]; I11.9 Hypertensive heart disease without heart failure; I25.10 Atherosclerotic heart disease of native coronary artery without angina pectoris; E03.9 Hypothyroidism, unspecified; F03.90 Unspecified dementia, unspecified severity, without behavioral disturbance, psychotic disturbance, mood disturbance, and anxiety; Z86.73 Personal history of transient ischemic attack (TIA), and cerebral infarction without residual deficits; Z90.49 Acquired absence of other specified parts of digestive tract; Z87.19 Personal history of other diseases of the digestive system; Z79.82 Long term (current) use of aspirin; Z88.4 Allergy status to anesthetic agent; Z88.5 Allergy status to narcotic agent; Z88.8 Allergy status to other drugs, medicaments and biological substances; Z91.041 Radiographic dye allergy status
CPT/HCPCS: 74176; 80053; 81000; 81002; 83605; 83690; 83735; 85025; 85610; 96361; 96374; 96375; 96376; 99285; A4300; G0463; J1170; J2405; J7030